=== PATIENT | male | born 1995 | race Hispanic/Latino ===

== ENCOUNTER 2017-06-19 00:06 | Emergency (ER) | payer OTHER ==
--- NOTE | 2017-06-19 07:57 | ULT ---
PRELIMINARY REPORT/[facility]/EMERGENCY AFTER HOURS PROCEDURE: EXAM: US Scrotum EXAM DATE/TIME: Exam ordered 06/19/2017 1:05 AM CLINICAL HISTORY: 21 years old, male; Pain; Other: Bilateral testicular pain staring at 7pm yesterday TECHNIQUE: Real-time ultrasound of the scrotum with color Doppler and image documentation. COMPARISON: No relevant prior studies available. FINDINGS: Right testicle: Unremarkable. No mass. No torsion. Left testicle: Unremarkable. No mass. No torsion. Epididymides: Unremarkable. Scrotum: Unremarkable. IMPRESSION: Normal scrotal ultrasound. Thank you for allowing us to participate in the care of your patient. Dictated and Authenticated by: Osmani Morfin MD 06/19/2017 1:40 AM Central Time ([place] & [place]) FINAL REPORT ULTRASOUND TESTICULAR WITH DOPPLER: Date: 06/19/17 HISTORY: Bilateral testicular pain. COMPARISON: None. FINDINGS: The echotexture of the testicles is normal. Normal bilateral vascularity. No hydrocele. Right testicle measures 3.7 x 2.0 x 2.6 cm. Left testicle measures 3.4 x 2.0 x 2.3 cm. Both epididymides are normal. IMPRESSION: Normal exam. Report in agreement with preliminary report given on-call by Seng. POS: [facility]
== END 2017-06-19 02:36 | disposition home or self-care (01) ==
LOC: ERS 00:06
DX: N45.1 Epididymitis (principal)
CPT/HCPCS: 76870; 93976